=== PATIENT | male | born 1985 | race American Indian/Alaskan Native ===

== ENCOUNTER 2020-12-04 13:45 | Outpatient (CLI) | payer OTHER ==
--- NOTE | 2020-12-04 15:25 | XRay Report ---
XR knees standing AP Bilateral INDICATION / CLINICAL INFORMATION: BILATERAL KNEE PAINS.. COMPARISON: None available. FINDINGS: No acute fracture or malalignment. Joint spaces appear preserved on standing. No significant arthriti s No focal soft tissue abnormality is identified. IMPRESSION: No significant abnormality. Signer Name: Marco A Wallis MD Signed: 12/04/2020 3:21 PM Workstation Name: [id number]
--- NOTE | 2020-12-04 16:00 | XRay Report ---
LUMBAR SPINE 3 VIEWS INDICATION / CLINICAL INFORMATION: LOW BACK PAIN.. COMPARISON: None available. FINDINGS: VERTEBRAE: No acute fracture. No significant malalignment. DISC SPACES / FACET JOINTS:No significant abnormality. PARASPINAL SOFT TISSUES:No significant abnormality. ADDITIONAL FINDINGS: None. Signer Name: Danielle Dawson MD Signed: 12/04/2020 3:55 PM Workstation Name: [facility] [id number]
--- NOTE | 2020-12-04 16:01 | XRay Report ---
BILATERAL HIP 3 VIEW(S) INDICATION / CLINICAL INFORMATION: BILATERAL HIP PAIN. COMPARISON: None available. FINDINGS: BONES / JOINT(S): No acute fracture or subluxation. No significant arthritis. SOFT TISSUES: No significant abnormality. ADDITIONAL FINDINGS: None. Signer Name: Danielle Dawson MD Signed: 12/04/2020 3:56 PM Workstation Name: [facility] [place] [facility]-[id number]
== END 2020-12-04 13:46 | disposition home or self-care (01) ==
LOC: XRAY 13:45
PROVIDERS: ATTEND Internal Medicine
DX: M25.551 Pain in right hip (principal); M25.552 Pain in left hip; M25.562 Pain in left knee; M25.561 Pain in right knee; M54.5 Low back pain
CPT/HCPCS: 72100; 73521; 73565